=== PATIENT | female | born 1995 | race Caucasian/White ===

== ENCOUNTER 2017-12-01 12:43 | Outpatient (CLI) | payer BC | END 2017-12-01 12:44 | disposition home or self-care (01) | LOC: BICRAD 12:43 | PROVIDERS: ATTEND Family Medicine | DX: M79.671 Pain in right foot (principal); M77.31 Calcaneal spur, right foot ==

== ENCOUNTER 2019-01-04 10:31 | Day surgery (SDC) | payer OTHER ==
[2019-01-03 12:01] VITALS: BMI 30.2
--- NOTE | 2019-01-03 12:37 | HP ---
HISTORY OF PRESENT ILLNESS: Ms. Danelle Hernandez is a very pleasant 23-year-old with abdominal pain off and on. Her pain is over the right upper quadrant going towards the back. She had no nausea. No vomiting. No diarrhea. No hematochezia. She has an abdominal CAT scan by Dr. Lorenzo. The CAT scan shows thickening of the gastric wall duodenum. She also had thickening of the transverse colon and hepatic area. Interestingly, she has no fever. No night sweats. No diarrhea, etc. However since she was told she had abnormal CAT scan, she is somewhat extremely anxious. She also has some nausea and also diarrhea and constipation off and on. The patient comes for an EGD and colonoscopy because of abdominal CAT scan showing thickening of the gastric wall, duodenum, and also the transverse colon area. ALLERGIES: OXYCODONE. SOCIAL HISTORY: The patient does not smoke or drink alcohol. MEDICAL ILLNESSES: 1. Anxiety and depression. 2. Obesity. 3. Menstrual history, regular cycles. LMP at present time. PHYSICAL EXAMINATION: GENERAL: Appears comfortable. She is heavyset. VITAL SIGNS: Pulse is 70 and blood pressure 110/70. HEENT: Conjunctivae clear. NECK: Supple. No adenitis or thyromegaly noted. CARDIOVASCULAR SYSTEM: First and second heart sounds heard. LUNGS: Clear to auscultation. ABDOMEN: Soft. No organomegaly. No tenderness. No masses. EXTREMITIES: Reveal no edema. ADMITTING DIAGNOSIS: A 23-year-old with abdominal pain, abnormal CAT scan of the abdomen. PLAN: EGD and colonoscopy. Job ID: [id number]
--- NOTE | 2019-01-04 13:37 | OP ---
DATE OF PROCEDURE: 01/04/2019 OPERATIVE PROCEDURES: Esophagogastroduodenoscopy with biopsy. PREOPERATIVE DIAGNOSES: Abdominal pain, abnormal CAT scan, and abdomen showed thickening of the gastric wall and duodenum. POSTOPERATIVE DIAGNOSES: Mild gastritis of the gastric body. Otherwise, exam is normal. There is no evidence of any gross disease at endoscopy. DESCRIPTION OF PROCEDURE: The patient was placed on her left lateral position and was given sedation by Anesthesia Department. A Pentax videogastroscope under direct vision passed down the oropharynx across the GE junction of the stomach and subsequently into the descending duodenum. The esophageal mucosa appeared normal. The GE junction, no pathology seen. In the fundus and cardia, no pathology seen. Over the gastric body, there was mild focal erythema and edema. The gastric body does not show any evidence of inflammation of the stomach. The incisura angularis and antrum, no pathology seen. The duodenal bulb, no pathology seen. The scope advanced into the third and fourth part. No pathology seen in the duodenum. The stomach decompressed and the scope withdrawn. Biopsies were obtained of the gastric antrum and gastric body. DISCHARGE PLANNING: A 23-year-old with vague abdominal pain off and on for a few weeks. She underwent the CAT scan. The CAT scan showed thickening of the gastric body, duodenum, and also findings of thickening in the transverse colon and hepatic flexure. The radiologist felt the patient could have Crohn disease. However, the endoscopy revealed no pathology except mild gastritis. DISCHARGE RECOMMENDATIONS: 1. The patient is reassured and advised to continue the medicine as before. 2. If the gastric biopsy shows any Helicobacter, we will treat accordingly. The patient on prednisone. We will just stop the prednisone. Job ID: [id number]
[2019-01-04] MEDS ORDERED: PROPOFOL 200 MG/20 ML VIAL ONE (16:35)
--- NOTE | 2019-01-04 17:56 | OP ---
DATE OF PROCEDURE: 01/04/2019 OPERATIVE PROCEDURE: Ileocolonoscopy. PREOPERATIVE DIAGNOSES: Abdominal pain, abdomen CAT scan showing what appears findings of Crohn disease involving the transverse colon and hepatic flexure area. The patient has no hematochezia. No diarrhea. No fever. The patient undergoing colonoscopy. POSTOPERATIVE DIAGNOSIS: Normal ileocolonoscopy. DESCRIPTION OF PROCEDURE: The patient was placed on her left lateral position and was given sedation by Anesthesia Department. A rectal exam was done before the scope was advanced into the rectum. No lesions felt on rectal exam. A Pentax videocolonoscope was introduced into the rectum and advanced all the way into the cecum. The mucosa appears normal throughout the colon with normal vascular pattern. There was no colitis seen. The appendicular opening, ileocecal wall, and cecum, no pathology. The scope advanced terminal ileum. The ileal mucosa appeared normal. Withdrawal from the ileum to the ascending colon, hepatic flexure. No pathology. The transverse colon, splenic flexure, descending colon, sigmoid colon, rectum no lesions. Overall impression although the CAT scan showed findings of Crohn disease, endoscopy, there was no pathology seen. Job ID: [id number]
== END 2019-01-04 13:08 | disposition home or self-care (01) ==
LOC: SDC 10:31
PROVIDERS: ATTEND Internal Medicine Gastroenterology
PROC: 0DJD8ZZ Inspection of Lower Intestinal Tract, Via Natural or Artificial Opening Endoscopic (ICD-10-PCS; principal; 2019-01-04)
PROC: 0DB78ZX Excision of Stomach, Pylorus, Via Natural or Artificial Opening Endoscopic, Diagnostic (ICD-10-PCS; principal; 2019-01-04)
DX: K29.50 Unspecified chronic gastritis without bleeding (principal); F41.8 Other specified anxiety disorders; K59.00 Constipation, unspecified; E66.9 Obesity, unspecified; Z68.30 Body mass index [BMI] 30.0-30.9, adult; Z79.52 Long term (current) use of systemic steroids; Z79.899 Other long term (current) drug therapy
CPT/HCPCS: 88305; 88312; J2704

== ENCOUNTER 2019-11-06 09:37 | Outpatient (CLI) | payer OTHER | END 2019-11-06 09:38 | disposition home or self-care (01) | LOC: DTY/OP 09:37 | DX: E66.9 Obesity, unspecified (principal) | CPT/HCPCS: 97802 ==

== ENCOUNTER 2024-04-30 14:49 | Outpatient (CLI) | payer BC | END 2024-04-30 14:50 | disposition home or self-care (01) | LOC: BICMAMMO 14:49 | PROVIDERS: ATTEND Family Medicine | DX: N64.59 Other signs and symptoms in breast (principal) | CPT/HCPCS: 77066; G0279 ==